=== PATIENT | male | born 1980 | race Caucasian/White ===

== ENCOUNTER 2018-02-08 13:05 | Emergency (ER) | payer OTHER ==
[2018-02-08] MEDS: HYDROCODONE/APAP (5/325) TAB PO (13:36)
[2018-02-08] MEDS: KETOROLAC 60 MG INJ IM (13:36)
== END 2018-02-08 14:49 | disposition home or self-care (01) ==
LOC: FTE 13:05
DX: R07.89 Other chest pain (principal)
CPT/HCPCS: 71045; 71100; 96372; 99284-25